=== PATIENT | female | born 1975 | race Caucasian/White ===

== ENCOUNTER 2017-11-14 06:03 | Emergency (ER) | payer OTHER ==
[2017-11-14] MEDS ORDERED: PAROXETINE HCL20 M1 PO (06:16)
--- NOTE | 2017-11-14 06:27 | ED GI/GU/ABDOMINAL COMPLAINT ---
History of Present Illness General Chief Complaint: Nausea, Vomiting, Diarrhea Stated Complaint: NVD X 5 DAYS. LOST 15 LBS SINCE THEN PER PT Source: patient, old records Exam Limitations: no limitations Vital Signs & Intake/Output Vital Signs & Intake/Output Vital Signs Date Time Temp Pulse Resp B/P B/P Pulse O2 O2 Flow FiO2 Mean Ox Delivery Rate 11/14 848 98.8 84 18 161/79 97 Room Air 11/14 0515 98.7 120 28 133/85 98 Allergies Coded Allergies: moxifloxacin (From AVELOX) (HIVES 11/14/17) pecan nut (SOB 11/14/17) Uncoded Allergies: WALNUTS (SOB 11/14/17) Reconcile Medications Paroxetine HCl 20 MG TABLET 1 TAB PO DAILY ANXIETY (Reported) Triage Note: PER PT SEVERE ABD PAIN SINCE , VOMITED FROM PAIN SAW [facility] ON WEDNESDAY WHO REPORTED IT WAS B NOTHING SEROIUS AND SCHEDULED AN OUT PT US ON . PT REPORTS PAIN CONTINUES AND VOMITTED X 3 TONIGHT, UNABLE TO EAT, LMP 10/14/17 Triage Nurses Notes Reviewed? yes LMP (ages 10-50): date ([id number]) ? n Is pt currently ? No Onset: Last week Duration: day(s):, continues in ED Timing: recent history Quality/Severity: aching, moderate, vomiting Location: left lower quadrant, right lower quadrant Radiation: no radiation Activities at Onset: rest Prior Abdominal Problems: none Past Sexual History: Unobtainable at this time Modifying Factors: Worsens With: eating. Associated Symptoms: abdominal pain, diarrhea, nausea/vomiting HPI: 5 days prior to admission patient complains of bilateral lower quadrant abdominal discomfort described as moderate to severe achy constant associated with anorexia nausea vomiting frequent loose watery stools. She reports she is lost 15 pounds during this time. She denies fever chills chest pain cough shortness breath headache dysuria rash bleeding . (Jeremías Garza MD) Past History Travel History Traveled to [place] past 21 day No Medical History Any Pertinent Medical History? see below for history Neurological: NONE EENT: NONE Cardiovascular: NONE Respiratory: NONE Gastrointestinal: NONE Hepatic: NONE Renal: NONE Musculoskeletal: NONE Psychiatric: anxiety Endocrine: NONE Surgical History Surgical History: cholecystectomy Psychosocial History What is your primary language Niuean Tobacco Use: Never used Family History Hx Contributory? No (Jeremías Garza MD) Review of Systems Review of Systems Constitutional: Reports: no symptoms, weakness. EENTM: Reports: no symptoms. Respiratory: Reports: no symptoms. Cardiovascular: Reports: no symptoms. GI: Reports: see HPI, abdominal pain, diarrhea, nausea, vomiting. Genitourinary: Reports: no symptoms. Musculoskeletal: Reports: no symptoms. Skin: Reports: no symptoms. Neurological/Psychological: Reports: see HPI, anxiety. Hematologic/Endocrine: Reports: no symptoms. Immunologic/Allergic: Reports: no symptoms. All Other Systems: Reviewed and Negative (Jeremías Garza MD) Physical Exam Physical Exam General Appearance: well developed/nourished, alert, awake, anxious, moderate distress, obese Head: atraumatic, normal appearance Eyes: Bilateral: normal appearance, PERRL, EOMI, normal inspection. Ears, Nose, Throat, Mouth: hearing grossly normal, dry mucous membranes Neck: normal inspection, supple, full range of motion, normal alignment, no midline tenderness Respiratory: normal breath sounds, chest non-tender, no respiratory distress, quiet respiration, lungs clear Cardiovascular: regular rate/rhythm, normal peripheral pulses, norml femoral pulses equa Peripheral Pulses: 4+ carotid (R), 4+ carotid (L) Gastrointestinal: normal bowel sounds, soft, non-tender, no organomegaly Back: normal inspection, normal range of motion Extremities: normal range of motion, no ligament instability Neurologic/Psych: no motor/sensory deficits, awake, alert, oriented x 3, normal gait, normal mood/affect, doll wig hackler II-XII nml as tested Skin: intact, normal color, warm/dry Core Measures ACS in differential dx? No Sepsis Present: No Sepsis Focused Exam Completed? No (Jeremías Garza MD) Progress Differential Diagnosis: appendicitis, diverticulitis, gastritis, pancreatitis, PUD/GERD Plan of Care: Orders Procedure Date/time Status URINALYSIS 11/14 802 Complete MAGNESIUM 11/14 625 Complete LIPASE 11/14 625 Complete HUMAN BETA HCG SCREEN 11/14 625 Complete COMPREHENSIVE METABOLIC PANEL 11/14 625 Complete CBC WITHOUT DIFFERENTIAL 11/14 625 Complete Current Medications Sig/Lawson Start time Last Medication Dose Stop Time Status Admin Ampicillin Sodium/ 3,000 MG ONCE ONE 11/14 0945 UNVr Sulbactam Sodium 11/14 1014 (Unasyn) Sodium Chloride 100 ML (Normal Saline 0.9%) Laboratory Tests 11/14/17 0804: Urinalysis LIGHT H, Urine Color YEL, Urine Clarity HAZY H, Urine pH 6.0, Ur Specific Mead >= 1.030, Urine Protein 30 H, Urine Ketones >=80, Urine Nitrite NEG, Urine Bilirubin NEG@ICTO, Urine Urobilinogen 0.2, Ur Leukocyte Esterase TRACE H, Ur Microscopic SEDIMENT EXAMINED, Urine RBC 1-3, Urine WBC 5- 10 H, Ur Epithelial Cells MOD H, Urine Bacteria MANY H, Granular Casts RARE H, Urine Mucus MOD H, Urine Hemoglobin TRACE-LYSED, Urine Glucose NEG 11/14/17 0645: Anion Gap 19 H, Estimated GFR > 60, BUN/Creatinine Ratio 14.3, Glucose 126 H, Calcium 9.7, Magnesium 1.6, Total Bilirubin 2.6 H, AST 19, ALT 37, Alkaline Phosphatase 83, Total Protein 8.2, Albumin 4.5, Globulin 3.7, Albumin/Globulin Ratio 1.2, Lipase 17 L, Total Beta HCG NEGATIVE, CBC w Diff NO MAN DIFF REQ, RBC 5.15, MCV 85.4, MCH 28.6, MCHC 33.5, RDW 13.0, MPV 7.4, Gran % 91.0 H, Lymphocytes % 5.8 L, Monocytes % 2.6, Eosinophils % 0.5, Basophils % 0.1, Absolute Granulocytes 10.1 H, Absolute Lymphocytes 0.6 L, Absolute Monocytes 0.3, Absolute Eosinophils 0.1, Absolute Basophils 0 Initial ED EKG: none Hand-Off Endorsed To: Alice VALERO,Migue Carey Endorsed Time: 0700 Pending: labs (Greg VALERO,Jeremías) Diagnostic Imaging: Viewed by Me: CT Scan. Discussed w/RAD: CT Scan. Radiology Impression: PATIENT: SARAH SCOTT PRESENT AGE: 42 PATIENT ACCOUNT NO: [id number] : 76 LOCATION: [facility] ORDERING PHYSICIAN: Migue Jenkins MD SERVICE DATE: 11/14/17 EXAM TYPE: CAT - CT ABD & PELVIS W IV CONTRAST EXAMINATION: CT ABDOMEN AND PELVIS WITH CONTRAST CLINICAL INFORMATION: Left lower quadrant pain COMPARISON: None TECHNIQUE: Multidetector volumetric imaging was performed of the abdomen and pelvis following IV administration of 95 mL of Optiray 320 intravenous contrast. Sagittal and coronal reformatted images were obtained on the technologist's workstation. DLP: 1 3-1.97 mGy-cm FINDINGS: LUNG BASES: The visualized lung bases are unremarkable. No pleural or pericardial effusion. LIVER, GALLBLADDER, AND BILIARY TREE: The liver is normal in size, shape, and attenuation. No focal hepatic lesion or biliary ductal dilatation is present. Patient status post cholecystectomy. PANCREAS: Unremarkable. No mass or peripancreatic inflammatory change. SPLEEN: Unremarkable. ADRENAL GLANDS: Unremarkable. KIDNEYS AND URETERS: The kidneys are normal in size, shape, and attenuation. No hydronephrosis, hydroureter, or obstructing calculi seen. No perinephric stranding. There are bilateral nonobstructing calculi the largest being 5 mm in the left renal upper pole. BLADDER: Decompressed but appears unremarkable. GASTROINTESTINAL TRACT: No dilated loops of large or small bowel are evident. There is wall thickening or pericolonic inflammatory change about the sigmoid colon consistent with acute diverticulitis. No drainable abscess collection is seen. There is no evidence of acute diverticulitis. ABDOMINAL WALL: No significant hernia is appreciated. LYMPH NODES: There are some prominent left periaortic lymph nodes present largest measuring 1 cm in short access diameter. VASCULAR: There is a rim calcified structure seen anterior to the superior mesenteric artery measuring approximately 2.3 x 1.9 cm in size on image 231 of 776. There is also noted to be an approximately 3.3 x 2.7 cm rim calcified structure within the left abdomen adjacent to superior mesenteric artery branch. These may represent superior mesenteric artery branch aneurysms. These do not appear to be related to the splenic artery or renal arteries. CT angiography may be of help in further evaluation. PELVIC VISCERA: There is a 1.2 x 0.9 cm calcification seen within the left adnexa. Dermoid tumor not excluded. OSSEOUS STRUCTURES: No destructive bony lesions identified. IMPRESSION: Acute diverticulitis of the sigmoid colon without drainable abscess. 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 Interventional radiology consultation could be considered along with CT angiography. Left adnexal calcification. Dermoid tumor not excluded. Bilateral nephrolithiasis without evidence of obstructive uropathy. DICTATED BY: Juan Hardwick MD DATE/TIME DICTATED:11/14/17850 INNERSOLE MAKER:RINKU DATE/TIME TRANSCRIBED:11/14/17850 CONFIDENTIAL, DO NOT COPY WITHOUT APPROPRIATE AUTHORIZATION. <Electronically signed in Other Vendor System> SIGNED BY: Juan Hardwick MD 11/14/1702 Comments: Patient was updated on lab and CAT scan results. Patient wants to go home. Patient will be discharged on oral antibiotics with instructions to have clear liquids only until pain free and return if the pain worsens or for any other concerns. (Alice VALERO,Migue Carey) Departure Departure Condition: Stable Departure Forms: Customer Survey General Discharge Information (Greg VALERO,Jeremías) Departure Disposition: HOME OR SELF CARE Clinical Impression Primary Impression: Diverticulitis Secondary Impressions: Abdominal pain Qualifiers: Abdominal location: lower abdomen, unspecified Qualified Code: R10.30 - Lower abdominal pain, unspecified Nausea, vomiting, and diarrhea Referrals: Patient Has No Primary Care Dr (PCP/Family) Duy Veronica MD Additional Instructions: CLEAR LIQUIDS ONLY UNTIL PAINFREE TAKE AUGMENTIN PRESCRIBED RETURN IF SYMPTOMS WORSENOR FOR ANY CONCENRS Prescriptions: Current Visit Scripts Amoxicillin/Potassium Clav (Augmentin 875-125 Tablet) 1 TAB PO BID #20 TAB Ondansetron (Zofran Odt) 1 TAB SL TID PRN NAUSEA #10 TAB (Alice VALERO,Migue Carey)
[2017-11-14 06:48] LABS: ABSOLUTE BASOPHIL COUNT 0 /CUMM (0.0-0.2); ABSOLUTE EOSINOPHIL COUNT 0.1 /CUMM (0.0-0.7); ABSOLUTE GRANULOCYTE CT 10.1 /CUMM (1.4-6.5); ABSOLUTE LYMPH COUNT 0.6 /CUMM (1.2-3.4); ABSOLUTE MONOCYTE COUNT 0.3 /CUMM (0.10-0.60); BASOPHIL % 0.1 % (0.0-2.0); EOSINOPHIL % 0.5 % (0-5); HEMATOCRIT 43.9 % (37-47); MEAN CORPUSCULAR HGB 28.6 PG (27.0-31.0); MEAN CORPUSCULAR HGB CONC 33.5 G/DL (33.0-37.0); MEAN CORPUSCULAR VOLUME 85.4 FL (81.0-99.0); MEAN PLATELET VOLUME 7.4 FL (7.4-10.4); PLATELET COUNT 384 /CUMM (130-400); RED BLOOD CELL CT 5.15 /CUMM (4.20-5.40)
[2017-11-14 07:06] LABS: WHITE BLOOD CELL COUNT 11.1 /CUMM (4.8-10.8)
[2017-11-14 08:49] VITALS: BP 161/79
--- NOTE | 2017-11-14 09:21 | CT SCAN REPORT ---
EXAMINATION: CT ABDOMEN AND PELVIS WITH CONTRAST CLINICAL INFORMATION: Left lower quadrant pain COMPARISON: None TECHNIQUE: Multidetector volumetric imaging was performed of the abdomen and pelvis following IV administration of 95 mL of Optiray 320 intravenous contrast. Sagittal and coronal reformatted images were obtained on the technologist's workstation. DLP: 1 3-1.97 mGy-cm FINDINGS: LUNG BASES: The visualized lung bases are unremarkable. No pleural or pericardial effusion. LIVER, GALLBLADDER, AND BILIARY TREE: The liver is normal in size, shape, and attenuation. No focal hepatic lesion or biliary ductal dilatation is present. Patient status post cholecystectomy. PANCREAS: Unremarkable. No mass or peripancreatic inflammatory change. SPLEEN: Unremarkable. ADRENAL GLANDS: Unremarkable. KIDNEYS AND URETERS: The kidneys are normal in size, shape, and attenuation. No hydronephrosis, hydroureter, or obstructing calculi seen. No perinephric stranding. There are bilateral nonobstructing calculi the largest being 5 mm in the left renal upper pole. BLADDER: Decompressed but appears unremarkable. GASTROINTESTINAL TRACT: No dilated loops of large or small bowel are evident. There is wall thickening or pericolonic inflammatory change about the sigmoid colon consistent with acute diverticulitis. No drainable abscess collection is seen. There is no evidence of acute diverticulitis. ABDOMINAL WALL: No significant hernia is appreciated. LYMPH NODES: There are some prominent left periaortic lymph nodes present largest measuring 1 cm in short access diameter. VASCULAR: There is a rim calcified structure seen anterior to the superior mesenteric artery measuring approximately 2.3 x 1.9 cm in size on image 231 of 776. There is also noted to be an approximately 3.3 x 2.7 cm rim calcified structure within the left abdomen adjacent to superior mesenteric artery branch. These may represent superior mesenteric artery branch aneurysms. These do not appear to be related to the splenic artery or renal arteries. CT angiography may be of help in further evaluation. PELVIC VISCERA: There is a 1.2 x 0.9 cm calcification seen within the left adnexa. Dermoid tumor not excluded. OSSEOUS STRUCTURES: No destructive bony lesions identified. IMPRESSION: Acute diverticulitis of the sigmoid colon without drainable abscess. 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 Interventional radiology consultation could be considered along with CT angiography. Left adnexal calcification. Dermoid tumor not excluded. Bilateral nephrolithiasis without evidence of obstructive uropathy.
[2017-11-14] MEDS ORDERED: AUGMENTIN 875-1 EACH PO (09:35)
[2017-11-14] MEDS ORDERED: ZOFRAN ODT4 M1 SL (09:35)
== END 2017-11-14 09:56 ==
LOC: ERH 06:03
PROVIDERS: Emergency Medicine
DX: K57.92 Diverticulitis of intestine, part unspecified, without perforation or abscess without bleeding (principal)
CPT/HCPCS: 74177; 81001; 96374; 96375; J1885; J2765